=== PATIENT | male | born 1985 | race Caucasian/White ===

== ENCOUNTER 2018-02-08 13:37 | Emergency (ER) | payer SELFPAY ==
--- NOTE | 2018-02-08 13:57 | EDM.PDOC ---
ED HPI GENERAL MEDICAL PROBLEM - General Chief Complaint: Upper Extremity Injury/Pain Stated Complaint: RIGHT HAND INJURY Time Seen by Provider: 02/08/18 13:49 Source of Information: Reports: Patient History Limitations: Reports: No Limitations - History of Present Illness INITIAL COMMENTS - FREE TEXT/NARRATIVE: Patient is a 32-year-old male presents ED complaining of mild swelling to the base of his right thumb after falling on it this past Wednesday. Patient states while going out to smoke his dog tripped him and he fell landing on his right hand. Swelling is minimal. Minimal decreased range of motion noted. No sensory changes noted. No pain noted to the scaphoid process. Pain is worse with palpation. Believes he has contusion. Does not suspect there is a fracture. He is requesting a doctor's note to return to work this . He offers no additional complaints. Right Hand Pain Score (Numeric/FACES): 4 - Related Data Allergies Allergy/AdvReac Type Severity Reaction Status Date / Time No Known Allergies Allergy Verified 02/08/18 13:48 Home Meds: Home Meds . [No Known Home Meds] 02/08/18 [History] Review of Systems - Review of Systems Review Of Systems: ROS reveals no pertinent complaints other than HPI. ED EXAM, GENERAL - Physical Exam Exam: See Below Exam Limited By: No Limitations General Appearance: Alert, WD/WN, No Apparent Distress Ears: Hearing Grossly Normal Nose: Normal Inspection Throat/Mouth: Normal Voice, No Airway Compromise Neck: Normal Inspection, Supple Respiratory/Chest: No Respiratory Distress, No Accessory Muscle Use Cardiovascular: Normal Peripheral Pulses, Regular Rate, Rhythm Peripheral Pulses: 4+: Radial (R) Extremities: Other (Mild swelling noted to the palmar aspect of his hand at the base of the thumb with increasing pain with palpation. Pain is minimal with palpation. No decreased range of motion noted. No bony abnormalities of the hand and fingers with palpation. No decreased range of motion noted to the fingers, wrist, elbow. No scaphoid tenderness.) Neurological: Alert, Oriented, CN II-XII Intact, Normal Cognition, No Motor/ Sensory Deficits Psychiatric: Normal Affect, Normal Mood Skin Exam: Warm, Dry, Intact, Normal Color Course - Vital Signs Last Recorded V/S: Last Vital Signs Temp 97.9 F 02/08/18 13:44 Pulse 74 06/19/18 13:44 Resp 18 02/08/18 13:44 BP 129/84 02/08/18 13:44 Pulse Ox 98 02/08/18 13:44 - Re-Assessments/Exams Free Text/Narrative Re-Assessment/Exam: Patient most likely has a contusion to the palm of his right hand. I have offered to obtain x-ray to ensure that there is no bony abnormalities. Patient refuses. He is requesting a doctor's note to return to work in 2 days. Discharge instructions as documented. Departure - Departure Time of Disposition: 13:56 Disposition: Home, Self-Care 01 Condition: Good Clinical Impression: Contusion of hand Qualifiers: Encounter type: initial encounter Laterality: right Qualified Code(s): S60.221A - Contusion of right hand, initial encounter - Discharge Information Instructions: Hand Contusion Referrals: PCP,Not In Area [Primary Care Provider] - Forms: ED Department Discharge, ED Return to Work/School Form
== END 2018-02-08 14:00 | disposition home or self-care (01) ==
LOC: JD.ED 13:37
DX: S60.221A Contusion of right hand, initial encounter (principal); W01.0XXA Fall on same level from slipping, tripping and stumbling without subsequent striking against object, initial encounter
CPT/HCPCS: 99283